=== PATIENT | female | born 2000 | race Caucasian/White ===

== ENCOUNTER 2021-03-30 19:29 | Emergency (ER) | payer OTHER ==
[2021-03-30] MEDS ORDERED: Ibuprofen 200 MG TAB ONE (20:13)
[2021-03-30] MEDS ORDERED: Ondansetron ODT 4 MG TAB ONE (20:13)
== END 2021-03-30 21:45 | disposition home or self-care (01) ==
LOC: CSHERS 19:29
DX: B34.9 Viral infection, unspecified (principal)
CPT/HCPCS: 99283; Q0162